=== PATIENT | female | born 1955 | race Two or more races ===

== ENCOUNTER 2018-11-05 10:33 | Inpatient (IN) | payer OTHER | END 2018-11-09 15:00 | disposition home or self-care (01) | LOC: TELE-WESTW 20:28 → ER 10:33 → TELE 14:57 → TELE-WESTW 20:30 | DX: G93.41 Metabolic encephalopathy (principal); R65.10 Systemic inflammatory response syndrome (SIRS) of non-infectious origin without acute organ dysfunction; E87.6 Hypokalemia; I10 Essential (primary) hypertension ==